=== PATIENT | female | born 1960 | race Caucasian/White ===

== ENCOUNTER 2024-03-06 15:51 | Outpatient (CLI) | payer OTHER, SELFPAY ==
--- NOTE | 2024-03-06 16:00 | CT_ITS ---
WS: [id number] CT NECK WITHOUT CONTRAST HISTORY: Cervicalgia TECHNIQUE: Contiguous 2 mm axial images are performed through the neck without intravenous contrast. Sagittal and coronal reformats are also submitted. All CT scans at [facility] use at least on e of these dose optimization techniques: automated exposure control; mA and/or kV adjustment per yemi ent size (includes targeted exams where dose is matched to clinical indication); or iterative reconst ruction. CONTRAST: CONTRAST: None DLP: 160.05 mGy.cm COMPARISON: None available. Oropharynx, nasopharynx and hypopharynx appear normal without IV contrast. No mass. No change in atte nuation. Torus tubarius and fossa of Rosenmuller and parapharyngeal fat are normal. Small bilateral cervical chain lymph nodes. These lymph nodes are normal size and attenuation. Normal appearance of the salivary glands. Mild straightening of the normal cervical lordosis. Vertebral body osteophyte throughout the cervical spine resulting in foraminal stenosis beginning at the C3-4 level. Severe foraminal stenosis, greate st on the RIGHT at C5-6. There is a large osteophyte from C6 encroaching upon the central canal. Visualized portions of the skull base demonstrate no abnormalities. Orbits and globes are within norm al limits. No soft tissue masses. Visualized paranasal sinuses and mastoid air cells are normal. Chronic advanced emphysematous changes at the lung apices. 3 mm micronodule RIGHT upper lobe. CT/CT neck wo con [id number] IMPRESSION: 1. No mass or adenopathy identified on this unenhanced neck CT. 2. No enlarged lymph nodes. 3. Chronic emphysema with a 3 mm micronodule in the RIGHT upper lobe.
== END 2024-03-06 15:52 | disposition home or self-care (01) ==
LOC: RAD 15:51
PROVIDERS: Visit Provider Otolaryngology
DX: M25.78 Osteophyte, vertebrae (principal); M99.61 Osseous and subluxation stenosis of intervertebral foramina of cervical region; R91.1 Solitary pulmonary nodule; R13.10 Dysphagia, unspecified; J43.8 Other emphysema
CPT/HCPCS: 70490